=== PATIENT | male | born 1980 | race Caucasian/White ===

== ENCOUNTER 2016-12-22 11:32 | Emergency (ER) | payer MEDICARE ==
--- NOTE | ~2016-12-22 | CR181 ---
[facility]. [facility] A Service of [facility] & [facility] RADIOLOGY TEXT RESULTS PATIENT: ASUNCION ASKEW LOCATION: SED : [birth year] UNIT #: [id number] AGE: [address]: Pema Cornell SEX: M ORDER DR: [id number] [place] [id number] MR#: [id number] Acc #: [id number] NAME: ASUNCION ASKEW : 1980 SEX: M STUDY DATE/TIME: 12/22/2016 11:57 UNIT: SED ROOM: STUDY DESCRIPTION: CR Lumbar Spine 2 or 3 Views Attending Physician: Pema Cornell P.A.-C. Ordering Physician: Pema Cornell P.A.-C. Primary Care Physician: Argelia Coello M.D. MEDICAL IMAGING REPORT This report is preliminary unless electronic signature is present. EXAM Lumbar spine series INDICATIONS Lower back pain after a fall yesterday. PROCEDURE Three views of the lumbar spine. COMPARISON None. FINDINGS Lumbar bodies have normal height. Alignment is preserved. Sacroiliac joints are symmetric. IMPRESSION No acute findings. Dictated by... Claude Zepeda M.D. THIS IS AN ELECTRONICALLY VERIFIED REPORT Claude Zepeda M.D. at 12/24/2016 5:02 PM EED/tommie TD: 12/22/2016 21:53 JOB #: [id number] MEDICAL IMAGING REPORT Page 1 of 1
--- NOTE | ~2016-12-22 | CR206 ---
[facility]. [facility] A Service of [facility] & [facility] RADIOLOGY TEXT RESULTS PATIENT: ASUNCION ASKEW LOCATION: SED : [birth year] UNIT #: [id number] AGE: [address]: Pema Cornell SEX: M ORDER DR: [id number] [place] [id number] MR#: [id number] Acc #: [id number] NAME: ASUNCION ASKEW : 1980 SEX: M STUDY DATE/TIME: 12/22/2016 11:57 UNIT: SED ROOM: STUDY DESCRIPTION: CR Pelvis 1 or 2 Views Attending Physician: Pema Cornell P.A.-C. Ordering Physician: Pema Cornell P.A.-C. Primary Care Physician: Argelia Coello M.D. MEDICAL IMAGING REPORT This report is preliminary unless electronic signature is present. EXAM Pelvis series INDICATIONS Lower back and right hip pain since yesterday, after a fall. PROCEDURE Frontal view pelvis. COMPARISON None. FINDINGS No acute fracture or dislocation. IMPRESSION No acute findings. Dictated by... Claude Zepeda M.D. THIS IS AN ELECTRONICALLY VERIFIED REPORT Claude Zepeda M.D. at 12/24/2016 5:02 PM EED/psc TD: 12/22/2016 21:51 JOB #: [id number] MEDICAL IMAGING REPORT Page 1 of 1
[~2016-12-22 11:32] MED LIST: ALEVE220 M1; BENADRYL25 M3 PO; DELTASONE20 MG PO; EPINEPHRIN0.3 MG/0.1 IM; FLEXERIL10 MG PO; HYDROCODON-ACE1 EAC9 PO; LORTAB 7.5-3251 EACH PO; LORTAB 7.51 TAB 7.5/ PO; MEDROL4 MG/DOSE- PO; NAPROSYN500 MG PO; NEURONTIN800 MG PO; PEPCID40 MG PO; PREDNISONE PO; TYLENOL #3 PO; ZANTAC150 MG PO; ZOFRAN PO
== END 2016-12-22 12:57 | disposition home or self-care (01) ==
LOC: SED 11:32
DX: S33.9XXA Sprain of unspecified parts of lumbar spine and pelvis, initial encounter (principal); F31.9 Bipolar disorder, unspecified; Z90.89 Acquired absence of other organs; F17.210 Nicotine dependence, cigarettes, uncomplicated; Z88.0 Allergy status to penicillin; Z79.899 Other long term (current) drug therapy; W19.XXXA Unspecified fall, initial encounter; Y93.61 Activity, american tackle football
CPT/HCPCS: 72100; 72170; 96372; 99283; J1885